=== PATIENT | male | born 1955 | race Caucasian/White ===

== ENCOUNTER → 2017-11-29 10:36 | Outpatient (CLI) | payer OTHER, SELFPAY ==
--- NOTE | 2017-11-29 | DI.MRI.S_ITS ---
PROCEDURE: MR SHOULDER RT WO CON INDICATIONS: RIGHT SHOULDER ROTATOR CUFF TEAR TECHNIQUE: Noncontrast oblique coronal T2 fast spin echo with fat saturation, oblique sagittal T1 spin echo and T2 fast spin echo with fat saturation, axial T1 spin echo and T2 fast spin echo with fat saturation through the shoulder. COMPARISON: [facility], , SHOULDER MINIMUM 2VIEW RIGHT, 10/02/2017, 12:11. FINDINGS: Image quality: Excellent. Rotator cuff: There is bursal sided tearing of the superior cuff along its insertion including moderate partial thickness tearing measuring approximately 1.3 cm in anteroposterior dimension. No definite full-thickness tear. There is mild retraction of the torn fibers by approximately 0.8 cm. There is mild interstitial extension of the tear proximally in the infraspinatus. No rotator cuff muscle atrophy on sagittal images. The subscapularis and teres minor appear intact. Bones and bursae: No bone marrow contusions or fractures. There is moderate acromioclavicular joint degeneration. The acromion demonstrates conventional anatomy, without an os acromiale. There is minimal anterior spurring along the acromion laterally. A small to moderate amount of subacromial-subdeltoid bursal fluid is present. Capsule and soft tissues: There is degenerative signal within the superior, anteroinferior, and inferior labrum. In the absence of intra-articular contrast, the glenohumeral ligaments appear intact. There is mild indistinct edema along the axillary pouch and within the rotator interval suggestive of a mild capsulitis. The long head of the biceps tendon demonstrates normal location and morphology. The coracohumeral ligament is normal in thickness. IMPRESSION: 1. Bursal sided partial thickness tearing along the insertion of the superior cuff including a moderate partial thickness tear anteriorly as described. No discrete full-thickness tear or fatty muscle atrophy. 2. Moderate acromioclavicular joint degeneration with a small to moderate amount of subacromial/subdeltoid bursal fluid. 3. Mild edema along the axillary pouch and in the rotator interval suggestive of a mild capsulitis. Dictated by: Vineet Couch M.D. on 11/29/2017 at 13:22 Approved by: Vineet Couch M.D. on 11/29/2017 at 13:39
== END ==
PROVIDERS: PCP Family Medicine; Visit Provider Orthopaedic Surgery
DX: M19.011 Primary osteoarthritis, right shoulder (principal); M75.111 Incomplete rotator cuff tear or rupture of right shoulder, not specified as traumatic
CPT/HCPCS: 73221

== ENCOUNTER → 2021-09-22 09:30 | Outpatient (CLI) | payer MEDICARE, OTHER, SELFPAY ==
--- NOTE | 2021-09-22 | DI.MRI.S_ITS ---
PROCEDURE: MR SHOULDER RT WO CON INDICATIONS: Pain in right shoulder TECHNIQUE: Noncontrast oblique coronal T2 fast spin echo with fat saturation, oblique sagittal T1 spin echo and T2 fast spin echo with fat saturation, axial T1 spin echo and T2 fast spin echo with fat saturation through the shoulder. COMPARISON: [facility] [place], CR, XR SHOULDER 2+ VIEWS RIGHT, 09/12/2021, 15:00. [facility], MR, MR SHOULDER RT WO CON, 11/29/2017, 11:00. FINDINGS: Image quality: Excellent. Rotator cuff: There is new full-thickness tearing of the mid and anterior supraspinatus tendon at the humeral insertion site, measuring roughly 30 mm anteroposterior. There are a few intact fibers of posterior supraspinatus remaining. Supraspinatus demonstrates medial retraction and atrophy. There is mild diffuse T2 signal elevation within the infraspinatus tendon at the humeral insertion site extending the musculotendinous junction. Superimposed low-grade partial-thickness articular surface tearing of the mid and posterior infraspinatus tendon at the humeral insertion site extending the musculotendinous junction. Subscapularis and teres minor tendons are intact. Bones and bursae: No bone marrow contusions or fractures. Moderate acromioclavicular joint degeneration. The acromion demonstrates conventional anatomy, without an os acromiale. No pathologic subacromial-subdeltoid or subcoracoid bursal fluid is present. Capsule and soft tissues: Labrum is grossly unremarkable The long head of the biceps tendon demonstrates normal location and morphology. The rotator interval appears normal, without fibrosis. The coracohumeral ligament is normal in thickness. IMPRESSION: 1. Progressive full-thickness tearing of the supraspinatus tendon with associated atrophy. 2. Tendinopathy with low-grade partial-thickness tearing of the infraspinatus. 3. Acromioclavicular joint osteoarthritis. Dictated by: Giancarlo Allison M.D. on 09/22/2021 at 13:19 Approved by: Giancarlo Allison M.D. on 09/22/2021 at 13:21
== END ==
PROVIDERS: PCP Family Medicine; Referring Provider Orthopaedic Surgery; Visit Provider Orthopaedic Surgery
DX: M75.121 Complete rotator cuff tear or rupture of right shoulder, not specified as traumatic (principal); M19.011 Primary osteoarthritis, right shoulder; M25.511 Pain in right shoulder
CPT/HCPCS: 73221

== ENCOUNTER → 2024-09-01 10:54 | Outpatient (CLI) | payer MEDICARE, OTHER, SELFPAY ==
--- NOTE | 2024-09-01 10:55 | DI.RAD.S_ITS ---
PROCEDURE: XR SHOULDER LT MIN 2V INDICATIONS: Pain in left shoulder TECHNIQUE: 3 views of the shoulder were acquired. COMPARISON: None. FINDINGS: Bones: No fractures or dislocations. No suspicious bony lesions. The humeral head is mildly high-riding with glenohumeral joint space narrowing and marginal osteophytosis. Mild hypertrophic acromioclavicular arthropathy noted. Visualized ribs appear intact. Soft tissues: No suspicious soft tissue calcifications. IMPRESSION: Degenerative change without evidence of acute osseous abnormality. Dictated by: Rico Andrade M.D. on 09/01/2024 at 22:16 Approved by: Rico Andrade M.D. on 09/01/2024 at 22:17
== END ==
LOC: RAD 10:55
PROVIDERS: PCP Family Medicine; Referring Provider Family Medicine; Visit Provider Family Medicine
DX: M25.512 Pain in left shoulder (principal); G89.29 Other chronic pain
CPT/HCPCS: 73030